=== PATIENT | male | born 1960 | race Caucasian/White ===

== ENCOUNTER 2020-04-17 08:15 | Emergency (ER) | payer MEDICARE ==
[~2020-04-17] VITALS: Ht 165.1 cm; Wt 78.0 kg
[2020-04-17 08:25] VITALS: BP 124/78
--- NOTE | 2020-04-17 09:12 | NUR ---
59 YO M C/O PRODUCTIVE COUGH X 1 WEEK. ACCOMPANIED BY CHEST PAIN, HEADACHE -06/03. TESTED NEGATIVE FOR COVID 2 WEEKS AGO. IN ED, PT TACHYCARDIC @ 115, 02 SAT 95% ON RA. EVEN, UNLABORED BREATHING. CLEAR BREATH SOUNDS ON ALL LUNG WELCH. PT IN COVID TENT TO BE SEEN BY ERMD. PMH: DENIES NKA
[2020-04-17 09:14] VITALS: BP 124/78
--- NOTE | 2020-04-17 09:14 | NUR ---
Patient discharged with v/s stable. Written and verbal after care instructions given and explained. Patient alert, oriented and verbalized understanding of instructions. Ambulatory with steady gait. All questions addressed prior to discharge. ID band removed. Patient advised to follow up with PMD. Rx of MOTRIN, PREDNISONE given. Patient educated on indication of medication including possible reaction and side effects. Opportunity to ask questions provided and answered.
== END 2020-04-17 09:14 | disposition home or self-care (01) ==
LOC: MED 08:15
DX: R05 Cough (principal); R07.9 Chest pain, unspecified; Z20.828 Contact with and (suspected) exposure to other viral communicable diseases
CPT/HCPCS: 71045; 99283

== ENCOUNTER 2023-10-04 11:01 | Emergency (ER) | payer MEDICARE, OTHER ==
[~2023-10-04] VITALS: Ht 165.1 cm; Wt 79.4 kg
[2023-10-04 11:07] VITALS: BP 113/65; PULSE 103; RESP 17; TEMP 98.6; O2SAT 94
[2023-10-04] MEDS ORDERED: AMOX500C25 PO (12:17)
[2023-10-04] MEDS ORDERED: ALBU0.0912 IH (12:17)
[2023-10-04] MEDS ORDERED: PROM118S5 PO (12:17)
[2023-10-04] MEDS ORDERED: METH4TAB1 PO (12:17)
[2023-10-04] MEDS: ALBUTEROL 0.083% 2.5 MG/3 ML NEBU INH ONE (12:19)
[2023-10-04 12:20] VITALS: PULSE 96; RESP 16; O2SAT 93
== END 2023-10-04 12:51 | disposition home or self-care (01) ==
LOC: MED 11:01
DX: J18.0 Bronchopneumonia, unspecified organism (principal); Z20.822 Contact with and (suspected) exposure to COVID-19; Z79.899 Other long term (current) drug therapy
CPT/HCPCS: 71045; 87426; 94640; 99284; J7613